=== PATIENT | female | born 1975 | race Hispanic/Latino ===

== ENCOUNTER 2016-08-28 18:36 | Emergency (ER) | payer OTHER, BC ==
[2016-08-28 18:37] VITALS: BMI 29.2
[2016-08-28 18:48] VITALS: TEMP 98.6
[2016-08-28] MEDS ORDERED: Sodium Chloride 0.9% 1,000 ML IV STA (19:17)
--- NOTE | 2016-08-28 19:52 | ED PDOC ---
Arrival/HPI - General Chief Complaint: GI Problem Time Seen by Provider: 08/28/16 19:01 Historian: Patient - History of Present Illness Narrative History of Present Illness (Text): 08/28/16 19:50 40yo female with PMHx of GERD present with complaint of nausea, multiple episodes of nonbloody/bilious vomiting. States she started having epigastric discomfort s/p. states she drank unknown amount of alcohol last night and started vomiting today. She denies diarrhea, constipation, fever, chills, urinary symptoms, sick contact, melena, hematemesis, hematocheszia, any other complaint. she usually takes Dexilant, but did not take it today. Past Medical History - Provider Review Nursing Documentation Reviewed: Yes - Infectious Disease Hx of Infectious Diseases: None - Tetanus Immunization Tetanus Immunization: Up to Date - Past Medical History Past Medical History: No Previous - Cardiac Hx Cardiac Disorders: No - Pulmonary Hx Respiratory Disorders: No - Neurological Hx Neurological Disorder: No - HEENT Hx HEENT Disorder: No - Renal Hx Renal Disorder: No - Endocrine/Metabolic Hx Endocrine Disorders: No - Hematological/Oncological Hx Blood Disorders: No - Integumentary Hx Dermatological Disorder: No - Musculoskeletal/Rheumatological Hx Musculoskeletal Disorders: No - Gastrointestinal Hx Gastrointestinal Disorders: Yes Hx Gastroesophageal Reflux: Yes - Genitourinary/Gynecological Hx Genitourinary Disorders: No - Psychiatric Hx Psychophysiologic Disorder: No Hx Substance Use: No - Past Surgical History Past Surgical History: No Previous - Anesthesia Hx Anesthesia: No Hx Anesthesia Reactions: No Hx Malignant Hyperthermia: No - Suicidal Assessment Feels Threatened In Home Enviroment: No Family/Social History - Physician Review Nursing Documentation Reviewed: Yes Family/Social History: Unknown Family HX Smoking Status: Never Smoked Hx Alcohol Use: Yes (SOCIALLY/MINIMALLY) Frequency of alcohol use: Socially Hx Substance Use: No Hx Substance Use Treatment: No Allergies/Home Meds Allergies/Adverse Reactions: Allergies moxifloxacin HCl [From Avelox] Allergy (Verified 08/28/16 18:49) URTICARIA Home Medications: Home Meds Medication Instructions Recorded Confirmed Dexlansoprazole [Dexilant] 60 mg PO QAM 08/12/14 08/28/16 Review of Systems - Physician Review All systems were reviewed & negative as marked: Yes - Review of Systems Constitutional: Normal Eyes: Normal ENT: Normal Respiratory: Normal Cardiovascular: Normal Gastrointestinal: Abdominal Pain, Nausea, Vomiting. absent: Constipation, Diarrhea, Hematochezia, Hematemesis Genitourinary Female: Normal Musculoskeletal: Normal Skin: Normal Neurological: Normal Endocrine: Normal Hemo/Lymphatic: Normal Psychiatric: Normal Physical Exam Vital Signs Reviewed: Yes Vital Signs Temp Pulse Resp BP Pulse Ox 08/28/16 18:44 98.6 F 66 20 107/76 99 Temperature: Afebrile Blood Pressure: Normal Pulse: Regular Respiratory Rate: Normal Appearance: Positive for: Well-Appearing, Non-Toxic, Comfortable Pain Distress: None Mental Status: Positive for: Alert and Oriented X 3 - Systems Exam Head: Present: Atraumatic, Normocephalic Pupils: Present: PERRL Extroacular Muscles: Present: EOMI Conjunctiva: Present: Normal Mouth: Present: Moist Mucous Membranes Neck: Present: Normal Range of Motion Respiratory/Chest: Present: Clear to Auscultation, Good Air Exchange. No: Respiratory Distress, Accessory Muscle Use Cardiovascular: Present: Regular Rate and Rhythm, Normal S1, S2. No: Murmurs Abdomen: Present: Normal Bowel Sounds, Other (Soft). No: Tenderness, Distention , Peritoneal Signs, Rebound, Guarding, McBurney's Point Tender, Rovsing's Sign Present Back: Present: Normal Inspection Upper Extremity: Present: Normal Inspection. No: Cyanosis, Edema Lower Extremity: Present: Normal Inspection. No: Edema Neurological: Present: GCS=15, CN II-XII Intact, Speech Normal Skin: Present: Warm, Dry, Normal Color. No: Rashes Psychiatric: Present: Alert, Oriented x 3, Normal Insight, Normal Concentration Medical Decision Making ED Course and Treatment: 08/28/16 20:38 Pt present in ED for stated history. She was comfortable. Hemodynamically stable. On re evaluation she states she feels much better. She was able to tolerate PO fluid. She was advised to follow BLAND diet. DC home with Juliet. Referred to her PMD. TRT ED for any new or worsening symptoms. - Lab Interpretations Lab Results: 08/28/16 19:34 08/28/16 19:34 Lab Results 08/28/16 19:34: Sodium 140, Potassium 4.2, Chloride 104, Carbon Dioxide 26, Anion Gap 14, BUN 10, Creatinine 0.8, Est GFR ( Amer) > 60, Est GFR (Non- Af Amer) > 60, Random Glucose 87, Calcium 9.2, Total Bilirubin 0.7, AST 48 H, ALT 46, Alkaline Phosphatase 59, Total Protein 9.0 H, Albumin 4.7, Globulin 4.3 , Albumin/Globulin Ratio 1.1, Lipase 79 08/28/16 19:34: PT 11.3, INR 1.05, APTT 26.4 08/28/16 19:34: WBC 9.6 D, RBC 4.59, Hgb 14.6, Hct 41.4, MCV 90.2, MCH 31.8, MCHC 35.3, RDW 13.0, Plt Count 337, MPV 9.8, Gran % 77.0 H, Lymph % (Auto) 14.5 L, [place] % (Auto) 5.5, Eos % (Auto) 2.4, Baso % (Auto) 0.6, Gran # 7.36 H, Lymph # 1.4, [place] # 0.5, Eos # 0.2, Baso # 0.06 - Medication Orders Current Medication Orders: Discontinued Medications Famotidine (Pepcid) 20 mg IVP STAT STA Stop: 08/28/16 19:18 Last Admin: 08/28/16 19:45 Dose: 20 mg Sodium Chloride (Sodium Chloride 0.9%) 1,000 mls @ 1,000 mls/hr IV .Q1H STA Stop: 08/28/16 20:16 Last Admin: 08/28/16 19:45 Dose: 1,000 mls/hr Ondansetron HCl (Zofran Inj) 4 mg IVP STAT STA Stop: 08/28/16 19:18 Last Admin: 08/28/16 19:45 Dose: 4 mg Tramadol HCl (Ultram) 50 mg PO STAT STA Stop: 08/28/16 19:07 Last Admin: 08/28/16 19:30 Dose: 50 mg Disposition/Present on Arrival - Present on Arrival Any Indicators Present on Arrival: No History of DVT/PE: No History of Uncontrolled Diabetes: No Urinary Catheter: No History of Decub. Ulcer: No History Surgical Site Infection Following: None - Disposition Have Diagnosis and Disposition been Completed?: Yes Diagnosis: Abdominal pain, Vomiting Disposition: HOME/ ROUTINE Disposition Time: 20:40 Patient Plan: Discharge Condition: STABLE Discharge Instructions (ExitCare): Abdominal Pain (ED), Acute Nausea and Vomiting (ED) Additional Instructions: Follow a BLAND diet for 24hrs Follow up with your doctor Return to ED for any new or worsening symptoms Prescriptions: Ondansetron ODT [Zofran ODT] 4 mg PO Q8 #8 odt Referrals: Jona Daley MD [Primary Care Provider] - Follow up with primary
[2016-08-28 19:53] LABS: ADD MANUAL DIFF? NO
[2016-08-28 19:59] LABS: BASO # 0.06 K/mm3 (0.0-2.0); BASO % 0.6 % (0.0-3.0); EOS # 0.2 (0.0-0.7); EOS % 2.4 % (1.5-5.0); GRAN # 7.36 (1.4-6.5); HEMATOCRIT 41.4 % (36.0-48.0); LYMPH # 1.4 (1.2-3.4); LYMPH % 14.5 % (22.0-35.0); MEAN CELL VOLUME 90.2 fL (80.0-105.0); MEAN CORPUSCULAR HEMOGLOBIN 31.8 pg (25.0-35.0); MEAN CORPUSCULAR HGB CONC 35.3 g/dl (31.0-37.0); MEAN PLATELET VOLUME 9.8 fl (7.0-11.0); MONO # 0.5 (0.1-0.6); MONO % 5.5 % (1.0-6.0); PLATELET COUNT 337 10^3/uL (120.0-450.0); WHITE BLOOD COUNT 9.6 10^3/ul (4.5-11.0)
[2016-08-28 20:11] LABS: ALB/GLOB RATIO 1.1 (1.1-1.8); ALKALINE PHOSPHATASE 59 U/L (38-133); ALT/SGPT 46 U/L (7-56); AST/SGOT 48 U/L (15-39); BILIRUBIN,TOTAL 0.7 mg/dL (0.2-1.3); BLOOD UREA NITROGEN 10 mg/dL (7-21); CALCIUM 9.2 mg/dL (8.4-10.5); CARBON DIOXIDE 26 mmol/L (21-33); CHLORIDE 104 mmol/L (98-107); GFR AFRICAN-AMERICAN > 60; GLUCOSE,RANDOM 87 mg/dL (70-110); INR 1.05 (0.93-1.08); LIPASE 79 U/L (23-300); PARTIAL THROMBOPLASTIN TIME 26.4 Seconds (23.7-30.8); POTASSIUM 4.2 mmol/L (3.6-5.0); SODIUM 140 mmol/L (132-148)
[2016-08-28 21:13] VITALS: BP 110/72; RESP 16; O2SAT 100
[2016-08-28 21:25] VITALS: PULSE 75
[2016-08-28 21:33] LABS: URINE BILIRUBIN NEGATIVE (NEGATIVE); URINE BLOOD LARGE (NEGATIVE); URINE GLUCOSE (UA) NEGATIVE (NEGATIVE); URINE KETONE NEGATIVE (NEGATIVE); URINE LEUKOCYTE ESTERASE TRACE Leu/uL (NEGATIVE); URINE PROTEIN TRACE mg/dL (<30 mg/dL); URINE UROBILINOGEN 0.2 E.U./dL (<1 E.U./dL)
[2016-08-28 21:36] LABS: URINE APPEARANCE SL CLOUDY (CLEAR); URINE COLOR YELLOW (YELLOW)
[2016-08-28 21:53] LABS: URINE BACTERIA MOD (NEG)
== END 2016-08-28 21:24 | disposition home or self-care (01) ==
LOC: ED 18:36
DX: R11.10 Vomiting, unspecified (principal); R10.9 Unspecified abdominal pain
CPT/HCPCS: 80053; 81001; 83690; 85025; 85610; 85730; 87086; 96374; 96375; 99284; J2405; J7040

== ENCOUNTER 2018-09-21 14:38 | Outpatient (CLI) | payer OTHER, BC | END 2018-09-21 14:39 | disposition home or self-care (01) | LOC: LAB 14:38 ==